=== PATIENT | female | born 1950 | race Caucasian/White ===

== ENCOUNTER 2025-05-06 12:38 | Emergency (ER) | payer OTHER, SELFPAY ==
[2025-05-06 12:39] VITALS: BMI 23.6
[2025-05-06 12:40] VITALS: BP 149/93
[2025-05-06 13:10] VITALS: BP 149/94
--- NOTE | 2025-05-06 13:36 | ED.GENMED ---
History of Present Illness
<Nela Antunez PA-C - Last Filed: 05/07/25 06:09>
General
Chief Complaint: Breathing Problem
Source: patient
Exam Limitations: none
Time Seen by Provider: 05/06/25 13:14
Nursing documentation reviewed up to this point in time: agreed with
<ANURAG Rodríguez - Last Filed: 05/06/25 23:10>
History of Present Illness
History of Present Illness:
see note
Past History
<Nela Antunez PA-C - Last Filed: 05/07/25 06:09>
Past History
ED Past Medical History: Cancer (Metastatic breast cancer)
ED Past Surgical History: Other (Left breast biopsy, left skin sparing free flap mastectomy and sentinel node biopsy, biopsy left iliac lesion)
Phy Exam
<ANURAG Rodríguez - Last Filed: 05/06/25 23:10>
Physical Exam
Physical Exam:
see note
Scores
<ANURAG Rodríguez - Last Filed: 05/06/25 23:10>
Heart Failure Risk
Heart Failure Risk Score: Not Applicable
Course
<THOR Hyde Last Filed: 05/07/25 06:09>
Orders/Labs/Results
Orders:
Orders
05/06/25 12:44
Electrocardiogram (*1) Urgent
Reason for Study: Shortness of Breath
EKG- Treatment ONCE
05/06/25 13:26
Complete Blood Count/With Diff Urgent
Comprehensive Metabolic Panel Urgent
Pro-BNP [NT-proBNP] Urgent
Troponin I Urgent
05/06/25 13:35
Type+Screen Urgent
COVID-19 Antigen Urgent
Source: Nasal Swab
Influenza A+B Rapid Molecular Urgent
JOANN Source: Nasal Swab
Specimen Description:
05/06/25 13:42
CT Chest PE Study Urgent
Comment:
Reason For Exam: hypoxia, cancer
Diphenhydramine [Benadryl] 50 mg IV NOW STA
Hydrocortisone Sod Succinate [Solu-Cortef] 200 mg IV NOW STA
Abnormal Lab Results
05/06/25
13:26
WBC 3.1 L 10^3/uL
(4.8-10.8)
RBC 3.92 L 10^6/uL
(4.20-5.40)
Hgb 11.4 L g/dL
(12.0-16.0)
Hct 34.9 L %
(37.0-47.0)
MCHC 32.7 L g/dL
(33.0-37.0)
RDW 15.8 H %
(11.5-14.5)
Absolute Lymphs (auto) 0.4 L 10^3/uL
(1.2-3.4)
Immature Gran % 1.0 H %
(0-0.5)
Lymphocytes % 12.9 L %
(20.5-51.1)
Monocytes % 12.6 H %
(1.7-9.3)
Basophils % 2.3 H %
(0-2)
BUN 20 H mg/dl
(7-17)
05/06/25 13:26
05/06/25 13:26
Vital Signs
Initial and Last Documented VS:
Initial Vital Signs
Temp Pulse Resp BP Pulse Ox
36.7 C 100 22 149/93 97
05/06/25 12:40 05/06/25 12:40 05/06/25 12:40 05/06/25 12:40 05/06/25 12:40
Last Documented Vital Signs
Temp Pulse Resp BP Pulse Ox
36.7 C 97 32 136/97 98
05/06/25 12:40 05/06/25 17:45 05/06/25 17:45 05/06/25 14:00 05/06/25 17:30
<ANURAG Rodríguez - Last Filed: 05/06/25 23:10>
Orders/Labs/Results
Orders:
Orders
05/06/25 12:44
Electrocardiogram (*1) Urgent
Reason for Study: Shortness of Breath
EKG- Treatment ONCE
05/06/25 13:26
Complete Blood Count/With Diff Urgent
Comprehensive Metabolic Panel Urgent
Pro-BNP [NT-proBNP] Urgent
Troponin I Urgent
05/06/25 13:35
Type+Screen Urgent
COVID-19 Antigen Urgent
Source: Nasal Swab
Influenza A+B Rapid Molecular Urgent
JOANN Source: Nasal Swab
Specimen Description:
05/06/25 13:42
CT Chest PE Study Urgent
Comment:
Reason For Exam: hypoxia, cancer
Diphenhydramine [Benadryl] 50 mg IV NOW STA
Hydrocortisone Sod Succinate [Solu-Cortef] 200 mg IV NOW STA
Abnormal Lab Results
05/06/25
13:26
WBC 3.1 L 10^3/uL
(4.8-10.8)
RBC 3.92 L 10^6/uL
(4.20-5.40)
Hgb 11.4 L g/dL
(12.0-16.0)
Hct 34.9 L %
(37.0-47.0)
MCHC 32.7 L g/dL
(33.0-37.0)
RDW 15.8 H %
(11.5-14.5)
Absolute Lymphs (auto) 0.4 L 10^3/uL
(1.2-3.4)
Immature Gran % 1.0 H %
(0-0.5)
Lymphocytes % 12.9 L %
(20.5-51.1)
Monocytes % 12.6 H %
(1.7-9.3)
Basophils % 2.3 H %
(0-2)
BUN 20 H mg/dl
(7-17)
05/06/25 13:26
05/06/25 13:26
Vital Signs
Initial and Last Documented VS:
Initial Vital Signs
Temp Pulse Resp BP Pulse Ox
36.7 C 100 22 149/93 97
05/06/25 12:40 05/06/25 12:40 05/06/25 12:40 05/06/25 12:40 05/06/25 12:40
Last Documented Vital Signs
Temp Pulse Resp BP Pulse Ox
36.7 C 97 32 136/97 98
05/06/25 12:40 05/06/25 17:45 05/06/25 17:45 05/06/25 14:00 05/06/25 17:30
<Nela Antunez PA-C - Last Filed: 05/07/25 06:09>
MDM/Problems Addressed
Differential Diagnosis Includes:
see MDM
MDM/Problems Addressed:
Note:
CHIEF COMPLAINT(S)
Shortness of breath
HISTORY OF PRESENT ILLNESS
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 The
symptoms began yesterday and have worsened since then. The patient reports using oxygen therapy for her breathing difficulties, a recent addition to her treatment regimen. Which started about a month ago. she uses two liters of supplemental oxygen,
which she uses consistently throughout the day and night. Patient has exertional dyspnea and feels fatigue and has very low energy. Today she went to her oncology appointment where she was supposed to have the iron infusion however because of her
symptoms her oncologist referred her to the emergency department instead. The patient denies chest pain and has not noted any fevers. Eating and drinking are adequate.
PAST MEDICAL AND SURGICAL HISTORY
The patient has a documented history of metastatic breast cancer. She is currently undergoing chemotherapy as part of her treatment plan.
SOCIAL DETERMINANTS AFFECTING HEALTH
The patient notes that she has had issues making it to appointments, possibly due to lack of transportation or logistical challenges associated with her health conditions.
REVIEW OF SYSTEMS
- Respiratory: Shortness of breath, worsening upon exertion, and history of fluid in lungs.
- Cardiovascular: No chest pain, occasional exertional shortness of breath.
- Constitutional: No fever reported.
PHYSICAL EXAM
GENERAL: Alert , in no apparent distress
EYE: pupils equal and reactive,
NECK: Supple
ENT: o/p clr, mmm.
CARDIAC: Regular rate and rhythm . No edema
LUNGS: Very faint end expiratory wheezing throughout, moving decent air, no rales
ABDOMEN: Soft, without focal tenderness, no r/g, no cvat, normal bowel sounds
NEUROLOGICAL: Alert and oriented, no focal neuro deficits
SKIN: Warm and dry, skin intact. Pale
MUSCULOSKELETAL: No edema, well perfused. neg megan's sign
PSYCH: Normal and appropriate interaction.
- Nursing notes reviewed and vital signs reviewed.
PLAN
1. Conduct a chest X-ray to assess for fluid accumulation in the lungs.
2. Continue monitoring oxygen saturation levels and adjust oxygen therapy as needed.
3. Follow up with oncologist as per regular chemotherapy schedule and any additional treatment needs.
DIFFERENTIAL DIAGNOSIS
The Differential Diagnosis includes, in no particular order and is not limited to:
1. Pulmonary edema
2. Acute exacerbation of chronic heart failure
3. Pulmonary embolism
4. Chronic obstructive pulmonary disease exacerbation
5. Pleural effusion
6. Pneumonia
7. Anemia
8. Metastatic disease progression in the lungs
9. Hypoxemia secondary to chemotherapy
10. Cardiomyopathy
<Nela Antunez PA-C - Last Filed: 05/07/25 06:09>
*Pulse Oximetry
SaO2: 97
Nasal Cannula flow liters per minute: 2
<ANURAG Rodríguez - Last Filed: 05/06/25 23:10>
*Radiology
Radiology exam reviewed: radiology read reviewed
*Pulse Oximetry
Patient hypoxic: no
*Critical Care Note
Total Time (30-74mins, 75-104mins- exclusive of procedures): Not Applicable
<ANURAG Rodríguez - Last Filed: 05/06/25 23:10>
Update Note
Update Note:
Received signout with CAT scan pending. CAT scan result shows severe radiation pneumonitis infectious pneumonia is an alternative diagnostic possibility however patient without cough afebrile. Additional findings on CAT scan with chronic
metastatic disease. Patient has oxygen as needed at home and feels well up to go home. She ambulated back and forth to the bathroom and feels much better. She would like to go home. I discussed with patient close outpatient follow with her
oncologist and family doctor. She is to return if any worsening of symptoms
ED Attending Note
<Nela Antunez PA-C - Last Filed: 05/07/25 06:09>
-
Portions of this chart may have been created with voice recognition software.� Occasional wrong word or��sound alike� substitutions may have occurred due to the inherent limitations of voice recognition software.
Discharge Plan
Departure
Patient Disposition: Home (Routine Discharge)
Date of Disposition: 05/06/25
Time of Disposition: 17:45
Patient with high blood pressure during this ER visit?: Yes
Condition: Fair
Covid-19: Not Applicable
Discharge Problem:
shortness of breath, Pneumonitis
Instructions: Shortness of Breath (Dyspnea) (DC), Pneumonitis
Prescriptions:
No Action
trazodone 50 MG tablet
50 mg PO HSPRN PRN (Reason: INSOMNIA)
fexofenadine [Violeta] 180 MG tablet
180 mg PO DAILYPRN PRN (Reason: ALLERGY SYMPTOMS)
tramadol 50 MG tablet
50 mg PO DAILYPRN PRN (Reason: PAIN)
docusate sodium 100 MG capsule
100 mg PO BIDPRN PRN (Reason: CONSTIPATION)
hydrocortisone 1 APPLIC cream
1 applic topical BIDPRN PRN (Reason: ARM/LEG RASH)
calcium carbonate-vitamin D3 [Oyster Shell Calcium-Vit D3] 500 MG tablet
1 tab PO TID
lansoprazole [Prevacid] 15 MG capsule,delayed release(DR/EC)
15 mg PO DAILYPRN PRN (Reason: ACID REFLUX)
paclitaxel 6 MG/ML concentrate
1 dose IV WEEKLY
denosumab [Xgeva] 120 MG/1.7 ML solution
120 mg SQ MONTHLY
azithromycin 250 MG tablet
500 mg PO DAILY Qty: 2 0RF
prednisone 10 MG tablet
10 mg PO .TAPER Qty: 84 0RF
Rx Instructions:
Take 50mg daily x7days, 40mg daily x7days,
30mg daily x7days
apixaban [Eliquis DVT-PE Treat 30D Start] 5 MG tablets,dose pack
5 - 10 mg PO DIRECTED Qty: 1 0RF
Rx Instructions:
DVT start pack (start from day 1)
Referrals:
Ciera Kirkpatrick MD [Family Provider, Family Practice]
Activity Restrictions/Additional Instructions:
Continue to wear your oxygen as previously recommended. Please follow-up with your oncologist closely in the next several days and return if any worsening of symptoms.
Interventions
Interventions:
*Risk Screen - Suicide Last Done: 05/06/25 12:40
*General Assessment Last Done: 05/06/25 12:40
*Neglect/Abuse Screening Last Done: 05/06/25 13:30
*ED- Fall Risk Assessment Last Done: 05/06/25 13:30
*Nursing Disposition Last Done: 05/06/25 17:50
ED- Cardiac Assessment Last Done: 05/06/25 13:30
ED- Pulmonary Assessment Last Done: 05/06/25 13:30
Discharge Date and Time
Discharge Date/Time: 05/06/25 18:20
Print Language: NEPALI
[2025-05-06] MEDS: SOLU-CORTEF 200 MG IV (13:58)
[2025-05-06] MEDS: BENADRYL 50 MG IV (13:58)
[2025-05-06 14:00] VITALS: BP 136/97
[2025-05-06 14:00] LABS: Hematocrit 34.9 % (37.0-47.0); Hemoglobin 11.4 g/dL (12.0-16.0); Mean Corp Hgb Conc. 32.7 g/dL (33.0-37.0); Mean Corpuscular Volume 89.0 fL (81.0-99.0); Nucleated Red Blood Cells % 0 %; Platelet Count 350 10^3/uL (130-400); Red Cell Dist. Width 15.8 % (11.5-14.5)
[2025-05-06 14:13] LABS: ALT (SGPT) 16 U/L (0-35); AST (SGOT) 22 U/L (14-36); Albumin 4.3 g/dl (3.5-5.0); Alkaline Phosphatase 92 U/L (38-126); Blood Urea Nitrogen 20 mg/dl (7-17); Calcium 9.1 mg/dl (8.4-10.2); Carbon Dioxide 30 mmol/L (22-30); Chloride 101 mmol/L (98-107); Estimated Creatinine Clearance 59 ml/min; Glucose 98 mg/dl (70-99); Potassium 4.0 mmol/L (3.5-5.1); Sodium 138 mmol/L (135-145); Total Protein 6.7 g/dl (6.3-8.2); eGFR > 60.00
[2025-05-06 14:22] LABS: COVID-19 Antigen Negative (Negative)
[2025-05-06 14:23] LABS: Troponin I < 0.012 ng/ml
== END 2025-05-06 18:20 | disposition home or self-care (01) ==
LOC: EMR 12:38
PROVIDERS: Emergency Medicine; Physician Assistant; EMERGENCY PHYSICIAN Emergency Medicine; FAMILY PHYSICIAN Family Medicine
DX: J70.0 Acute pulmonary manifestations due to radiation (principal); R03.0 Elevated blood-pressure reading, without diagnosis of hypertension; C78.2 Secondary malignant neoplasm of pleura; J91.0 Malignant pleural effusion; C78.7 Secondary malignant neoplasm of liver and intrahepatic bile duct; C77.1 Secondary and unspecified malignant neoplasm of intrathoracic lymph nodes; C77.5 Secondary and unspecified malignant neoplasm of intrapelvic lymph nodes; C79.51 Secondary malignant neoplasm of bone; Z99.81 Dependence on supplemental oxygen; Z85.3 Personal history of malignant neoplasm of breast; Z90.12 Acquired absence of left breast and nipple; Z85.72 Personal history of non-Hodgkin lymphomas
CPT/HCPCS: 99284; 96374; 96375; 71275; 80053; 83880; 84484; 85025; 86850; 86900; 86901; 87502; 87811; 93005; Q9967

== ENCOUNTER 2025-05-13 03:36 | Observation (INO) | payer OTHER, SELFPAY ==
[2025-05-12 21:10] VITALS: BP 113/75
[2025-05-12 21:30] VITALS: BP 135/76; BMI 24.1
[2025-05-12 22:00] VITALS: BP 126/79
[2025-05-12 22:59] LABS: ALT (SGPT) 28 U/L (0-35); AST (SGOT) 25 U/L (14-36); Albumin 4.0 g/dl (3.5-5.0); Alkaline Phosphatase 160 U/L (38-126); Blood Urea Nitrogen 29 mg/dl (7-17); Calcium 9.9 mg/dl (8.4-10.2); Carbon Dioxide 32 mmol/L (22-30); Chloride 93 mmol/L (98-107); Estimated Creatinine Clearance 51 ml/min; Glucose 116 mg/dl (70-99); Potassium 3.6 mmol/L (3.5-5.1); Sodium 133 mmol/L (135-145); Total Protein 6.7 g/dl (6.3-8.2); eGFR > 60.00
[2025-05-12 23:00] VITALS: BP 118/70
[2025-05-12 23:03] LABS: Hematocrit 35.0 % (37.0-47.0); Hemoglobin 11.5 g/dL (12.0-16.0); Mean Corp Hgb Conc. 32.9 g/dL (33.0-37.0); Mean Corpuscular Volume 87.3 fL (81.0-99.0); Nucleated Red Blood Cells % 0 %; Platelet Count 486 10^3/uL (130-400); Red Cell Dist. Width 16.3 % (11.5-14.5)
--- NOTE | 2025-05-12 23:36 | ED.GENMED ---
History of Present Illness
General
Chief Complaint: Swelling
Source: patient
Exam Limitations: none
Time Seen by Provider: 05/12/25 23:07
Nursing documentation reviewed up to this point in time: agreed with
History of Present Illness
History of Present Illness:
75-year-old female with past medical history of breast cancer mets to the lung, anemia, presents to the ER today with symptoms of an allergic reaction following the administration of a contrast agent during a computed tomography scan performed one
week ago. The patient reports she typically pre-medicates with prednisone and diphenhydramine for contrast-based imaging, and last week was given these pre medications.
Symptoms began soon after the imaging study, with the patient noticing increased itching, primarily of the feet and ankles, followed by significant blistering observed six days later after removing her socks. She reported these symptoms were
atypical compared to previous contrast reactions that primarily involved facial swelling and irritation.
Additionally, the patient has had increased shortness of breath, a symptom she attributes to the allergic reaction. The patient also has a history of skipped chemotherapy treatments due to respiratory issues, with a recent chest imaging suggesting
possible radiation pneumonitis versus pneumonia, though she denies symptoms consistent with pneumonia such as cough or fever. Her current symptoms include severe pain and sensitivity of the skin extending over her body, more localized to her lower
extremities now, and mild respiratory discomfort without increased oxygen requirements.
She is currently on chemotherapy.
Patient has not had a fever at home.
Past History
Past History
ED Past Medical History: Cancer (Metastatic breast cancer)
ED Past Surgical History: Other (Left breast biopsy, left skin sparing free flap mastectomy and sentinel node biopsy, biopsy left iliac lesion)
Review of Systems
Review of Systems
All Other Systems: ROS reviewed and negative except as documented in HPI and ROS
Phy Exam
Physical Exam
Physical Exam:
General: Patient is well appearing and in no acute distress; non-toxic
Skin: Warm and dry, see peripheral vascular exam
Head: Normocephalic, atraumatic
Eyes: Sclera non-icteric. EOMs intact.
Mouth: No intraoral lesions
Cardiac: Regular rate and rhythm, no murmur
Peripheral Vascular: Bilateral lower extremity edema with pedal erythema bilaterally, 2+ DP and PT pulses bilaterally, bullae noted to bilateral feet with negative Nikolsky sign
Pulm: Patient chronically maintained on 2 L of oxygen via nasal cannula lungs clear bilaterally to auscultation
Neuro: CN II-XII intact, no focal neurologic deficits.
Psychiatric: Appropriate mood and affect.
Scores
Heart Failure Risk
Heart Failure Risk Score: Not Applicable
Course
Orders/Labs/Results
Orders:
Orders
05/12/25 22:37
Complete Blood Count/With Diff Urgent
Comprehensive Metabolic Panel Urgent
NT-proBNP Urgent
05/12/25 23:29
CR Chest - 2 Views Urgent
Comment:
Reason For Exam: shortness of breath, lower ext swelling
05/13/25 00:11
Famotidine [Pepcid] 20 mg IV NOW STA
05/13/25 01:27
Diphenhydramine [Benadryl] 12.5 mg IV NOW STA
05/13/25 03:13
Admit/Transfer Patient As Directed
Co-Sign Provider:
Level of Care: Observation services
Assign to:: Medical/Surgical
Physician / Group: Gladys
Diagnosis: drug reaction with eosinophilia
PRN Pain Medication Management As Directed
May give lesser potent ordered pain med per pt: Yes
preference::
Protocol:: Medication orders for pain may be administered in a
manner that supports deferring to patient preference
when the pt is:
- Requesting an ordered lesser potent pain medication.
Least to most potent pain medications are defined
as: acetaminophen < NSAID < tramadol < opioids
(morphine, oxycodone, hydromorphone).
- Requesting a lesser dose of the same medication IF
ORDERED.
- Requesting a less intrusive route of administration
if both routes are prescribed by the provider (PO <
IV).
05/13/25 03:14
Code Status As Directed
Resuscitation Status: Do not resuscitate
Reached after discussion with pt or family/Healthcare POA: Yes
05/13/25 03:16
Prednisone [Deltasone] 30 mg PO NOW STA
05/13/25 03:56
Acetaminophen [Tylenol] 650 mg PO Q4HPRN PRN
Bisacodyl [Dulcolax] 10 mg RECTAL [id number] PRN
Diphenhydramine [Benadryl] 12.5 mg IV Q4HPRN PRN
Docusate W/Senna [Senokot-S] 1 tablet PO BIDPRN PRN
Ondansetron Injectable [Zofran] 4 mg IV Q6HPRN PRN
Polyethylene Glycol Powder [Miralax] 17 grams PO DAILYPRN PRN
05/13/25 03:56
Activity As Directed
Activity Level: With Assistance
Vital Signs As Directed
Frequency: Per unit guidelines
O2 Therapy [RESP] Routine
Nasal Cannula Liter Flow: 2 LPM
Titrate/Wean O2 to maintain O2 sat greater than (%): 92
Pulse Ox/spot Check [RESP] Routine
Quantity: 1
DX Deep Vein Thrombosis Video Routine
05/13/25 Breakfast
Regular
At Your Request: Full Participation
Basic Metabolic Panel IN AM
Complete Blood Count/No Diff IN AM
05/13/25 08:00
Aspirin Low Dose EC [Aspir Low (Enteric Coated)] 81 mg PO DAILY
Hydrochlorothiazide [Oretic] 12.5 mg PO DAILY
05/13/25 18:00
Enoxaparin Sodium [Lovenox] 40 mg SC QPM
05/13/25 22:00
Famotidine [Pepcid] 20 mg IV HS
Rosuvastatin Calcium [Crestor] 20 mg PO HS
05/14/25 08:00
Prednisone [Deltasone] 30 mg PO DAILY
Abnormal Lab Results
05/12/25
22:37
WBC 14.7 H 10^3/uL
(4.8-10.8)
RBC 4.01 L 10^6/uL
(4.20-5.40)
Hgb 11.5 L g/dL
(12.0-16.0)
Hct 35.0 L %
(37.0-47.0)
MCHC 32.9 L g/dL
(33.0-37.0)
RDW 16.3 H %
(11.5-14.5)
Plt Count 486 H D 10^3/uL
(130-400)
Abs Immat Gran (auto) 0.6 H 10^3/uL
(0-0.05)
Absolute Neuts (auto) 7.8 H 10^3/uL
(1.4-6.5)
Absolute Monos (auto) 1.8 H 10^3/uL
(0.1-0.6)
Absolute Eos (auto) 1.5 H 10^3/uL
(0-0.7)
Immature Gran % 4.3 H %
(0-0.5)
Lymphocytes % 19.7 L %
(20.5-51.1)
Monocytes % 12.4 H %
(1.7-9.3)
Eosinophils % 10.2 H %
(0-6)
Sodium 133 L mmol/L
(135-145)
Chloride 93 L mmol/L
(98-107)
Carbon Dioxide 32 H mmol/L
(22-30)
BUN 29 H mg/dl
(7-17)
Glucose 116 H mg/dl
(70-99)
Alkaline Phosphatase 160 H U/L
(38-126)
05/12/25 22:37
05/12/25 22:37
Vital Signs
Initial and Last Documented VS:
Initial Vital Signs
Temp Pulse Resp BP Pulse Ox
97.8 F 108 24 113/75 99
05/12/25 21:10 05/12/25 21:10 05/12/25 21:10 05/12/25 21:10 05/12/25 21:10
Last Documented Vital Signs
Temp Pulse Resp BP Pulse Ox
97.8 F 95 25 119/76 92
05/12/25 21:10 05/13/25 03:30 05/13/25 03:30 05/13/25 03:00 05/13/25 03:15
MDM/Problems Addressed
Differential Diagnosis Includes:
ddx include contact dermatitis, allergic reaction, cellulitis, bullous Pemphigoid
MDM/Problems Addressed:
75-year-old female with history of breast cancer with mets to the lung who presents to the ER today with concerns of rash and itching for the past few days. He required mission to the hospital for dermatology and infectious disease consult. She
reports that she is allergic to IV contrast dye which she had 6 days ago and did receive pretreatment at the time however she believes that later that day she started to develop allergic type symptoms. She reports that she feels itchiness all over
her body and this evening she started develop blisters and redness on her bilateral lower extremities. She denies any other allergen exposures. She has been on the same chemotherapy. She has not had a fever. This evening, she stated that some
the blister started to rupture on her own. On exam, she does not have evidence of Kolsky sign. Suspect symptoms related to severe allergic reaction however given her elevated white blood cell count, immunocompromise status, infectious etiology
also possible. Plan initially was to start Ancef however she is allergic to penicillins and with her redness and allergic symptoms would not want to initiate vancomycin. ED attending Dr. Jazlyn villa who evaluated patient at bedside.
Chronic conditions affecting care:
metastatic breast cancer
*Pulse Oximetry
SaO2: 92
Nasal Cannula flow liters per minute: 1
Oxygen Mode of Delivery: Room air
Patient hypoxic: no
*Critical Care Note
Total Time (30-74mins, 75-104mins- exclusive of procedures): Not Applicable
Data Reviewed
Review of Other/Old Records Reveals: Records (Reviewed ER physician documentation from 05/06/2025 patient seen for radiation pneumonitis)
ED Attending Note
-
Portions of this chart may have been created with voice recognition software.� Occasional wrong word or��sound alike� substitutions may have occurred due to the inherent limitations of voice recognition software.
Discharge Plan
Departure
Patient Disposition: Admit
Date of Disposition: 05/13/25
Time of Disposition: 02:16
Admit to: Med/Surg
Presentation/result/management discussed w/ accepting MD/DO: Hospitalist
Patient with high blood pressure during this ER visit?: No
Condition: Fair
Discharge Problem:
Blistering rash, Chronic shortness of breath
Interventions
Interventions:
*Risk Screen - Suicide Last Done: 05/12/25 21:10
*General Assessment Last Done: 05/12/25 21:10
*Neglect/Abuse Screening Last Done: 05/12/25 21:10
*ED COVID-19 Vaccine History Last Done: 05/12/25 21:10
*ED Influenza Vaccine History Last Done: 05/12/25 21:10
*Nursing Disposition Last Done: 05/13/25 03:52
ED- Cardiac Assessment Last Done: 05/12/25 21:30
ED- Pulmonary Assessment Last Done: 05/12/25 21:30
ED-Skin Assessment Last Done: 05/12/25 21:30
Discharge Date and Time
Discharge Date/Time: 05/13/25 03:53
[2025-05-13] VITALS (9 sets, daily range): BP systolic 117–141; BP diastolic 76–88; BMI 23.4; BMI 23.2
[2025-05-13] MEDS: PEPCID 20 MG IV (00:18)
[2025-05-13] MEDS: BENADRYL 12.5 MG IV (01:32)
--- NOTE | 2025-05-13 02:28 | HPS.HSE ---
Family Physician
-
Family Physician: Ciera Kirkpatrick
Chief Complaint
-
Rash and swelling
History of Present Illness
This is a 75-year-old female with past medical history significant for large cell lymphoma, metastatic breast cancer diagnosed 2018 with mets to the lung, bone complicated by malignant pleural effusion, lymphangitic pulmonary spread with pulmonary
nodules and radiation fibrosis/pneumonitis on 2 L home O2 as needed, status postmastectomy osteoporosis, urticaria.
Patient reported that she been usual state of health up until about 1 week ago when she went in for her fourth cycle of chemotherapy infusions since March. She had no problems with prior infusion. However prior to getting the infusion she told
the physician that she had been feeling weaker than usual and she did not get the medication that day. States she got some saline infusion and was told to go home and come back for another scheduled visit. Patient reported that she did feel short
of breath after getting the saline infusion and was therefore sent to the emergency department for further evaluation. At that time she got a CT with IV contrast which showed known radiation pneumonitis, no pleural metastatic disease,
reticulonodular interstitial disease throughout the lungs consistent with lymphangitic carcinomatosis, multifocal osteoblastic osseous metastatic disease and hepatic metastatic disease. There was no pulmonary embolism. She has a history of
contrast allergies and was prescribed with 1 dose of hydrocortisone and Benadryl prior to the CT scan.
Patient reported that since Sunday she developed itching throughout the body which is now localized mostly to her legs. She said after few days of the itching seem to be resolving and then she started taking Zyrtec as well. Although itching was
still going on she started developing blisters yesterday. She did come to the emergency department for evaluation. She denies any fevers or chills. She has no other medication or substance exposures.
In the emergency department patient was afebrile, blood pressure was 120/79 with a pulse of 100 and she was satting 97% on room air. ECG shows a normal sinus rhythm at a rate of [address] or T wave changes. X-ray shows interstitial
findings which is similar to prior. CBC with a white count of 14.7 hemoglobin 11.5 and plate count of 46. Electrolyte BUN/creatinine were normal. Glucose was normal. LFTs were normal. Alk phos was slightly elevated. She does have elevated
eosinophils compared to prior at 10.2 and absolute eosinophilia of 1500.
Medical History
Past Medical History
Past Medical History: Reports Cancer (Breast cancer with mets to lungs), CHF (History of CHF with preserved EF) and Other (History of PE)
Past Surgical History: Reports Other (Left Mastectomy)
Social History
Tobacco: Non-smoker
Alcohol: None
Drug: None
Family History
Family History: Not pertinent
Allergies / Home Medications
Allergies reflects when Allergies were last updated in [facility].
Home Medications with original date entered in [facility]
Allergy/Medication List:
Allergies
Allergy/AdvReac Type Severity Reaction Status Date / Time
amoxicillin Allergy Rash Verified 05/12/25 21:09
clavulanic acid Allergy Rash Verified 05/12/25 21:09
Iodinated Contrast Media Allergy Unknown Verified 05/12/25 21:09
penicillin V Allergy Rash Verified 05/12/25 21:09
Home Medications
aspirin 81 mg tablet,delayed release 81 mg PO DAILY 05/13/25
hydrochlorothiazide 12.5 mg tablet 12.5 mg PO DAILY 05/13/25
omeprazole 20 mg capsule,delayed release 20 mg PO DAILY 05/13/25
ondansetron HCl 8 mg tablet 8 mg PO Q8H PRN nausea 05/13/25
rosuvastatin 20 mg tablet 20 mg PO HS 05/13/25
Review of Systems
-
Constitutional: Reports No Symptoms
EENT: Reports No Symptoms
Respiratory: Reports No Symptoms
Cardiac: Reports No Symptoms
Abdomen/GI: Reports No Symptoms
: Reports No Symptoms
Musculoskeletal: Reports No Symptoms
Skin: Reports Itching and Rash
Neurological: Reports No Symptoms
Endocrine: Reports No Symptoms
Hematologic/Lymphatic: Reports No Symptoms
Psych: Reports No Symptoms
Physical Exam
Vital Signs
Vital Signs
Temp Pulse Resp BP Pulse Ox
97.8 F 100 28 128/79 93
05/12/25 21:10 05/13/25 02:00 05/13/25 02:00 05/13/25 02:00 05/13/25 02:00
Physical Exam
General: Well Developed, Well Nourished and No Apparent Distress
HEENT: NormoCephalic, Moist mucous membranes and Atraumatic
Respiratory: Clear
Cardiac: S1/S2 and Regular Rhythm; No Murmur or Rub
GI: Soft, Non Tender, Non Distended and Normal Bowel Sounds; No Organomegaly
Rectal: Deferred by Provider
Musculoskeletal: No Clubbing, No Cyanosis and No Edema
Skin: Rash (Bullae with clear fluid in the bilateral feet at the toes. There is no erythema. Spontaneous rupture noted without underlying nikolsky sign. No cellulitis. )
Neuro: AO x 3 and Nonfocal/grossly intact
Laboratory Results
-
05/12/25 22:37
05/12/25 22:37
Laboratory Results
Total Bilirubin 0.5 mg/dl (0.2-1.3) 05/12/25 22:37
AST 25 U/L (14-36) 05/12/25 22:37
ALT 28 U/L (0-35) 05/12/25 22:37
Alkaline Phosphatase 160 U/L (38-126) H 05/12/25 22:37
Data Reviewed
-
Diagnostic Radiology: Image Personally Visualized and interpreted
Medical Tests (Nuc Med, Echo, EKG etc): Image Personally Visualized and interpreted
Lab Data: Labs Reviewed by me
Impression/Plan
-
IMPRESSION:
75-year-old with metastatic breast cancer with mets to the lungs, liver, bone, currently on chemotherapy presents to the emergency department with itching and discomfort to the bilateral lower extremity and found to have vesicles/bullae right around
the toes. The bullae are clear and with spontaneous rupture revealing no Nikolsky sign and no surrounding erythema. Suspect this is allergic reaction with hypereosinophilia. Exposure is unclear. She did receive contrast although she got
pretreatment and is less likely to have resulted in a reaction. She denies any new medications or exposures. She has not been exposed to any new antibiotic. She did use aloe vera cream throughout her body after developing the itching 3 days after
contrast exposure. I suspect this acute allergic reaction likely secondary to contrast exposure. No evidence of cellulitis. Not consistent with Diego-Tyler's or toxic epidermal necrolysis. She is hemodynamically stable. She is on her
baseline oxygen. No wheezing or crackles.
PLAN:
Skin Rash w/ eosinophilia - Pruritius rash then developement of dependent bullaePossibly 2/2 contrast. No other exposure. No signs of acute infection. Did not receive chemo recently
- admit to med/surg observation
- hold off on abx for now
- benadryl prn pruritus
- prednisone 40mg po daily x 3 days and stop
- topical cream for rash ok if needed.
- monitor for fevers,
- ED request ID consult, will hold off on ID consult unless erythema worsening
- Dermatology consult in am.
Chronic Hypoxia - Mets to lungs with numerous changes, stable. Radiation pneumonitis stable. Now wheezing. On chronic home O2
- continue 2 L home O2 for now
Will continue her usual home HCTZ 12.5, Rosuvostatin, asa 81 and zofran as she has been on these medications for a long time without issues
DVT PPX - lovenox sq
Code status - Full Code
[2025-05-13] MEDS: DELTASONE 30 MG PO (03:28)
--- NOTE | 2025-05-13 05:36 | PTCARENOTE ---
Patient received from ED via stretcher. She was able to stand and pivot to the bed and BSC with assist x1. She was oriented to room and surroundings. Dyspnea at rest and with activity. O2 at 2lpm maintained. HRR, breath sounds are decreased
throughout. +LE pedal edema with + pedal pulses. Blisters TRISTA. L foot blisters intact and right open with scant serous drainage. Patient states she has relief of itching and no pain at this time. Call arcos in reach.
[2025-05-13 07:57] LABS: Hematocrit 33.8 % (37.0-47.0); Hemoglobin 11.5 g/dL (12.0-16.0); Mean Corp Hgb Conc. 34.0 g/dL (33.0-37.0); Mean Corpuscular Volume 86.9 fL (81.0-99.0); Platelet Count 456 10^3/uL (130-400); Red Cell Dist. Width 16.3 % (11.5-14.5)
[2025-05-13 08:39] LABS: Blood Urea Nitrogen 21 mg/dl (7-17); Calcium 9.3 mg/dl (8.4-10.2); Carbon Dioxide 30 mmol/L (22-30); Chloride 97 mmol/L (98-107); Estimated Creatinine Clearance 59 ml/min; Glucose 111 mg/dl (70-99); Potassium 3.9 mmol/L (3.5-5.1); Sodium 135 mmol/L (135-145); eGFR > 60.00
--- NOTE | 2025-05-13 09:07 | W.PN.HOSP.TC ---
Today's Communication/Plan
-
PT, wound care, continue prednisone, likely discharge tomorrow
Assessment / Plan
Assessment / Plan
HPI: 75-year-old with metastatic breast cancer with mets to the lungs, liver, bone, currently on chemotherapy presents to the emergency department with itching and discomfort to the bilateral lower extremity and found to have vesicles/bullae right
around the toes. The bullae are clear and with spontaneous rupture revealing no Nikolsky sign and no surrounding erythema. Suspect this is allergic reaction with hypereosinophilia. Exposure is unclear. She did receive contrast although she got
pretreatment and is less likely to have resulted in a reaction. She denies any new medications or exposures. She has not been exposed to any new antibiotic. She did use aloe vera cream throughout her body after developing the itching 3 days after
contrast exposure. I suspect this acute allergic reaction likely secondary to contrast exposure. No evidence of cellulitis. Not consistent with Diego-Tyler's or toxic epidermal necrolysis. She is hemodynamically stable. She is on her
baseline oxygen. No wheezing or crackles.
Assessment/plan:
Skin Rash w/ eosinophilia
- Pruritic rash then development of dependent bullae. Possibly 2/2 contrast. No other exposure. No signs of acute infection. Did not receive chemo recently
- Improving on prednisone 40mg po daily
- Continue prednisone 40 mg daily x 3-5 days total, then stop
- Consult PT, wound care
Metastatic breast cancer with metastases to the lungs
Radiation pneumonitis
Chronic Hypoxia
- Outpatient follow-up, continue oxygen
Hyperlipidemia
- Continue statin
GERD
- Continue PPI
Essential hypertension
- Continue HCTZ
DVT PPX - lovenox sq
Full Code
Physical Exam
General: No acute distress
HEENT: Normocephalic, Atraumatic, EOMI, MMM
Respiratory: Clear to Auscultation bilaterally
Cardiac: Normal S1/S2, Regular Rate and Rhythm
GI: Soft, Nontender, Nondistended, Normal Bowel Sounds
Extremities: No Clubbing, Cyanosis, or Edema
Neuro: Nonfocal/Grossly Intact
Psych: Calm, Cooperative
Derm: Erythema of bilateral forefoot with scattered serosanguineous bullae
Anticipated Discharge: Within 24 hours
Subjective/Interval History
-
Date of Service: May 13, 2025
Patient reports improvement in her bilateral feet pain and itching. She denies chest pain, denies shortness of breath. No fever, no vomiting.
Objective Data
-
Labs:
Laboratory Results
05/12/25 05/13/25
22:37 07:04
WBC 14.7 H 13.3 H
Hgb 11.5 L 11.5 L
Hct 35.0 L 33.8 L
Plt Count 486 H D 456 H
Sodium 133 L 135
Potassium 3.6 3.9
Chloride 93 L 97 L
Carbon Dioxide 32 H 30
BUN 29 H 21 H
Creatinine 0.7 0.6
Glucose 116 H 111 H
Calcium 9.9 9.3
Total Bilirubin 0.5
AST 25
ALT 28
Alkaline Phosphatase 160 H
Vital Signs:
Vital Signs
Temp Pulse Resp BP Pulse Ox
98.1 F 92 16 124/79 97
05/13/25 07:55 05/13/25 07:55 05/13/25 07:55 05/13/25 07:55 05/13/25 07:55
[2025-05-13] MEDS: ASPIR LOW (ENTERIC COATED) 81 MG PO (09:17)
[2025-05-13] MEDS: ORETIC 12.5 MG PO (09:17)
[2025-05-13] MEDS: MIRALAX 17 GRAMS PO (13:34)
[2025-05-13] MEDS: SENOKOT-S 1 TABLET PO (13:34)
--- NOTE | 2025-05-13 14:57 | WOUNDNOTE ---
[facility] RN NOTE: Reviewed chart, met with patient. Per chart review, patient has skin rash w/ eosinophilia with dependent bullae, possibly secondary to contrast. Right dorsal foot with newly opened blister, left foot blisters intact. Local wound care
provided to right foot . Patient given instruction on how to care for blisters if they open at home. Supplies given to patient and discharge orders updated. Sacrum intact, heels with stage 1 PI. Bilateral heels off-loaded with pillows under calves.
Adhesive foam applied to bilateral heels. Patient is on a [employer] Max Air. RN given update. Will sign off.
--- NOTE | 2025-05-13 16:45 | CM ---
[employer] reviewed patient's chart and met with patient and patient was admitted under OBS, WOOD letter provided to patient and patient lives with spouse in a split level home, 5 steps to enter patient is independent with adl's and ambulation,
patient has a cane, walker and home oxygen she thinks is from [employer].
PCP: Ciera Kirkpatrick
Pharmacy: [facility].
[2025-05-13] MEDS: LOVENOX 40 MG SC (18:37)
[2025-05-13] MEDS: CRESTOR 20 MG PO (21:00)
[2025-05-14 06:00] VITALS: BMI 22.9
[2025-05-14 07:00] VITALS: BP 125/85
--- NOTE | 2025-05-14 08:12 | W.PN.HOSP.TC ---
Today's Communication/Plan
-
Discharge to short-term rehab when bed available
Assessment / Plan
Assessment / Plan
HPI: 75-year-old with metastatic breast cancer with mets to the lungs, liver, bone, currently on chemotherapy presents to the emergency department with itching and discomfort to the bilateral lower extremity and found to have vesicles/bullae right
around the toes. The bullae are clear and with spontaneous rupture revealing no Nikolsky sign and no surrounding erythema. Suspect this is allergic reaction with hypereosinophilia. Exposure is unclear. She did receive contrast although she got
pretreatment and is less likely to have resulted in a reaction. She denies any new medications or exposures. She has not been exposed to any new antibiotic. She did use aloe vera cream throughout her body after developing the itching 3 days after
contrast exposure. I suspect this acute allergic reaction likely secondary to contrast exposure. No evidence of cellulitis. Not consistent with Diego-Tyler's or toxic epidermal necrolysis. She is hemodynamically stable. She is on her
baseline oxygen. No wheezing or crackles.
Assessment/plan:
Skin Rash w/ eosinophilia
- Pruritic rash then development of dependent bullae. Possibly 2/2 contrast. No other exposure. No signs of acute infection. Did not receive chemo recently
- Improving on prednisone 40mg po daily
- Continue prednisone 30 mg daily x 3-5 days total, then stop
- PT rec SNF, wound care
Metastatic breast cancer with metastases to the lungs
Radiation pneumonitis
Chronic Hypoxia
- Outpatient follow-up, continue oxygen
Hyperlipidemia
- Continue statin
GERD
- Continue PPI
Essential hypertension
- Continue HCTZ
DVT PPX - lovenox sq
Full Code
Total time spent to see the patient on the floor, examine the patient, review data and lab results, discuss treatment plan with patient, nursing staff around 37 minutes.
Physical Exam
General: No acute distress
HEENT: Normocephalic, Atraumatic, EOMI, MMM
Respiratory: Clear to Auscultation bilaterally
Cardiac: Normal S1/S2, Regular Rate and Rhythm
GI: Soft, Nontender, Nondistended, Normal Bowel Sounds
Extremities: No Clubbing, Cyanosis, or Edema
Neuro: Nonfocal/Grossly Intact
Psych: Calm, Cooperative
Derm: Erythema of bilateral forefoot with scattered serosanguineous bullae
Anticipated Discharge: Within 24 hours
Subjective/Interval History
-
Date of Service: May 14, 2025
Patient reports her bilateral feet itching is improved, currently 3. Her pain is also improved, currently 1. She denies chest pain, she has chronic shortness of breath and chronic hypoxia. No fever, no vomiting. She had a bowel movement.
Objective Data
-
Vital Signs:
Vital Signs
Temp Pulse Resp BP Pulse Ox
98.0 F 93 17 127/77 97
05/13/25 23:27 05/13/25 23:27 05/13/25 23:27 05/13/25 23:27 05/13/25 23:27
I&O
05/13/25 05/14/25 05/15/25
06:59 06:59 06:59
Intake Total 1140 / 1140
Output Total 900 / 900
Balance 240 / 240
[2025-05-14] MEDS: DELTASONE 30 MG PO (08:31)
[2025-05-14] MEDS: ASPIR LOW (ENTERIC COATED) 81 MG PO (08:32)
[2025-05-14] MEDS: ORETIC 12.5 MG PO (08:32)
[2025-05-14 09:57] VITALS: BP 136/74; O2SAT 98
--- NOTE | 2025-05-14 10:55 | CM ---
Addendum entered by Heather Deluna 05/14/25 16:17:
Authorization approved for Skilled level of care for 5 days; starting tomorrow, 05/15/2025
Auth # [id number]
Next review 05/19; call in clinicals to # [phone]
Ambulance Authorization # [id number]
Addendum entered by Heather Deluna 05/14/25 15:33:
[facility] unable to accept referral; no bed available
[facility] can accept patient patient tomorrow pending Authorization approval
[facility] NPI #[id number] and
Provider: Dr. Marilu Gonzales; NPI# [id number]
Plan: Discharge to [facility] tomorrow pending Auth approval
Addendum entered by Heather Deluna 05/14/25 11:14:
SNF referrals sent via [facility]
Original Note:
Met with patient at bedside
IMM benefit explained; form signed @ 1035
Explained to patient that PT recommended SNF when stable for discharge; Patient is agreeable; SNF agency options identified; preferences are [facility], [facility] and [facility]
Plan: Discharge to SNF pending bed availability and Authorization approval
[2025-05-14] MEDS: REFRESH EYE DROPS (PF) 1 DROPS BOTH EYES (13:16)
[2025-05-14 14:26] VITALS: BP 130/83; PULSE 103; O2SAT 91
[2025-05-14 15:00] VITALS: BP 131/88
[2025-05-14] MEDS: LOVENOX 40 MG SC (18:00)
[2025-05-14] MEDS: CRESTOR 20 MG PO (21:44)
[2025-05-14 23:27] VITALS: BP 151/85
[2025-05-15 07:34] VITALS: BP 143/88
[2025-05-15] MEDS: REFRESH EYE DROPS (PF) 1 DROPS BOTH EYES (08:36)
[2025-05-15] MEDS: ASPIR LOW (ENTERIC COATED) 81 MG PO (08:37)
[2025-05-15] MEDS: ORETIC 12.5 MG PO (08:37)
[2025-05-15] MEDS: DELTASONE 30 MG PO (08:37)
--- NOTE | 2025-05-15 08:37 | W.PN.HOSP.TC ---
Today's Communication/Plan
-
Discharge to short-term rehab today
Assessment / Plan
Assessment / Plan
HPI: 75-year-old with metastatic breast cancer with mets to the lungs, liver, bone, currently on chemotherapy presents to the emergency department with itching and discomfort to the bilateral lower extremity and found to have vesicles/bullae right
around the toes. The bullae are clear and with spontaneous rupture revealing no Nikolsky sign and no surrounding erythema. Suspect this is allergic reaction with hypereosinophilia. Exposure is unclear. She did receive contrast although she got
pretreatment and is less likely to have resulted in a reaction. She denies any new medications or exposures. She has not been exposed to any new antibiotic. She did use aloe vera cream throughout her body after developing the itching 3 days after
contrast exposure. I suspect this acute allergic reaction likely secondary to contrast exposure. No evidence of cellulitis. Not consistent with Diego-Tyler's or toxic epidermal necrolysis. She is hemodynamically stable. She is on her
baseline oxygen. No wheezing or crackles.
Assessment/plan:
Skin Rash w/ eosinophilia
- Pruritic rash then development of dependent bullae. Possibly 2/2 contrast. No other exposure. No signs of acute infection. Did not receive chemo recently
- Improving on prednisone 30mg po daily
- Will discharge on prednisone 30 mg p.o. daily for 1 more day
- PT rec SNF, wound care
Metastatic breast cancer with metastases to the lungs
Radiation pneumonitis
Chronic Hypoxia
- Outpatient follow-up, continue oxygen
Hyperlipidemia
- Continue statin
GERD
- Continue PPI
Essential hypertension
- Continue HCTZ
DVT PPX - lovenox sq
Full Code
Physical Exam
General: No acute distress
HEENT: Normocephalic, Atraumatic, EOMI, MMM
Respiratory: Clear to Auscultation bilaterally
Cardiac: Normal S1/S2, Regular Rate and Rhythm
GI: Soft, Nontender, Nondistended, Normal Bowel Sounds
Extremities: No Clubbing, Cyanosis, or Edema
Neuro: Nonfocal/Grossly Intact
Psych: Calm, Cooperative
Derm: Erythema of bilateral forefoot with scattered serosanguineous bullae
Anticipated Discharge: Today
Subjective/Interval History
-
Date of Service: May 15, 2025
Patient reports that the itching on her feet is improved, currently 1 out of 10 in intensity. The pain in her feet has resolved. She denies chest pain, she does have chronic shortness of breath. No fever, no vomiting.
Objective Data
-
Vital Signs:
Vital Signs
Temp Pulse Resp BP Pulse Ox
98.6 F 93 16 143/88 94
05/15/25 07:34 05/15/25 07:34 05/15/25 07:34 05/15/25 07:34 05/15/25 07:34
I&O
05/14/25 05/15/25 05/16/25
06:59 06:59 06:59
Intake Total 1140 / 1140 840 / 840
Output Total 900 / 900
Balance 240 / 240 840 / 840
--- NOTE | 2025-05-15 10:19 | CM ---
Chart reviewed. Auth approved for [facility] for today
Confirmed w/ Shiela/[facility] director, bed available for patient
Spoke w/ son, Paul, via phone. Confirmed auth approval and d/c to SNF today. Offered w/c van transport as patient doesn't qualify for an ambulance. Paul agreeable to cost of transport, Acute Care transport number provided. Paul confirmed
patient has a portable O2 device and can bring to the hospital during his lunch.
Transport form left on chart
Patient remains obs status, IMM delivered yesterday in error
[facility]
Report: [phone]

Plan: D/c to [facility] today. W/c van transport
--- NOTE | 2025-05-15 11:18 | W.DCSUMMARY ---
Discharge Summary
Discharge Data
Date of Admission: 05/13/25
Date of Discharge: 05/15/25
-
Pending Results: No
Hospital Course
Discharge diagnosis:
Acute dermatitis with fluid-filled bullae, from probable allergic reaction to contrast
Metastatic breast cancer with metastases to the lung
Radiation pneumonitis
Chronic hypoxia
Gastroesophageal reflux disease
Essential hypertension
Hyperlipidemia
Hospital course:
75-year-old female with a past medical history of metastatic breast cancer with metastases to the lung, radiation pneumonitis, and chronic hypoxia who presents with bilateral feet pain, itching, and erythema. She did receive contrast recently.
Suspect this is an allergic reaction from contrast. She was treated with prednisone 30 mg daily. Her pain resolved, and her itching improved dramatically. She is medically stable for discharge to short-term rehab. She can continue prednisone 30
mg for 1 more day upon discharge. She needs to follow-up with her PCP 1 week after she leaves rehab.
Disposition: Short-term rehab
Discharge planning: Required 33 minutes
Discharge Plan
-
Patient Disposition: [facility]iary[facility]SNF
Discharge Diagnosis/Procedures: Skin rash/dermatitis, suspect secondary to iodine exposure
Condition: Fair
Diet: Low Fat and Low Cholesterol
Activity: As tolerated
Driving Restrictions: As prior to admission
Activity Restrictions/Additional Instructions:
Take prednisone 30 mg daily for 1 more day.
Follow-up with your primary care provider 1 week after you leave rehab.
Wound Care Instructions Blisters- If blisters open, keep clean by washing gently with soap and water and applying clean, not adherent dressing provided.
Follow up at wound care center call for an appointment.
Referrals:
Ciera Kirkpatrick MD [Family Provider, [facility]]
Prescriptions:
New
polyethylene glycol 3350 17 gram Powder In Packet
17 g PO DAILYPRN PRN (Reason: constipation) Qty: 0 0RF
Refresh Classic (PF) 1.4-0.6 % Dropperette
1 drp BOTH EYES QIDPRN PRN (Reason: dry eyes) Qty: 0 0RF
sennosides-docusate sodium [Senna Plus] 8.6-50 mg Tablet
1 tab PO BIDPRN PRN (Reason: constipation) Qty: 0 0RF
prednisone 10 mg tablet
30 mg PO DAILY 1 Days Qty: 3 0RF
Saline Mist 0.65 % aerosol,spray
2 spray intranasal QID PRN (Reason: dry nasal passages) Qty: 44 0RF
Continued
ondansetron HCl 8 mg tablet
8 mg PO Q8H PRN (Reason: nausea)
aspirin 81 mg Tablet,Delayed Release (Dr/Ec)
81 mg PO DAILY
omeprazole 20 mg capsule,delayed release(DR/EC)
20 mg PO DAILY
rosuvastatin 20 mg tablet
20 mg PO HS
hydrochlorothiazide 12.5 mg tablet
12.5 mg PO DAILY
Discharge Orders:
Discharge Patient (As Directed); Ordered 05/15/25
Ordered By: Elvis Langford
Discharge Date and Time
Discharge Date/Time: 05/15/25 16:51
Print Language: URDU
[2025-05-15 15:25] VITALS: BP 129/90
== END 2025-05-15 16:51 ==
LOC: 2 NORTH 03:36
PROVIDERS: Emergency Medicine; ADMITTING PHYSICIAN Internal Medicine; ATTENDING PHYSICIAN Family Medicine; EMERGENCY PHYSICIAN Student in an Organized Health Care Education/Training Program; FAMILY PHYSICIAN Family Medicine
DX: L27.0 Generalized skin eruption due to drugs and medicaments taken internally (principal); T50.905A Adverse effect of unspecified drugs, medicaments and biological substances, initial encounter; D72.10 Eosinophilia, unspecified; R09.02 Hypoxemia; C78.01 Secondary malignant neoplasm of right lung; C78.02 Secondary malignant neoplasm of left lung; E78.5 Hyperlipidemia, unspecified; K21.9 Gastro-esophageal reflux disease without esophagitis; I11.0 Hypertensive heart disease with heart failure; I50.32 Chronic diastolic (congestive) heart failure; J70.0 Acute pulmonary manifestations due to radiation; Z79.52 Long term (current) use of systemic steroids; Z79.82 Long term (current) use of aspirin; Z79.899 Other long term (current) drug therapy; Z99.81 Dependence on supplemental oxygen
CPT/HCPCS: 71046; 80048; 80053; 83880; 85025; 85027; 87070; 93005; 96374; 96375; 97162; 97167; 97530; 99285; G0378

== ENCOUNTER → 2025-05-18 10:30 | Outpatient (REF) | payer OTHER, SELFPAY ==
[2025-05-18 11:57] LABS: Hematocrit 36.2 % (37.0-47.0); Hemoglobin 11.5 g/dL (12.0-16.0); Mean Corp Hgb Conc. 31.8 g/dL (33.0-37.0); Mean Corpuscular Volume 92.8 fL (81.0-99.0); Platelet Count 435 10^3/uL (130-400); Red Cell Dist. Width 17.8 % (11.5-14.5)
[2025-05-18 12:19] LABS: Blood Urea Nitrogen 25 mg/dl (7-17); Calcium 8.8 mg/dl (8.4-10.2); Carbon Dioxide 29 mmol/L (22-30); Chloride 98 mmol/L (98-107); Glucose 81 mg/dl (70-99); Potassium 4.0 mmol/L (3.5-5.1); Sodium 133 mmol/L (135-145); eGFR > 60.00
[2025-05-18 14:02] LABS: Nucleated Red Blood Cells % 0.2 %
== END ==
LOC: OLABP 10:30
PROVIDERS: ATTENDING PHYSICIAN Family Medicine
DX: J70.0 Acute pulmonary manifestations due to radiation (principal); C50.919 Malignant neoplasm of unspecified site of unspecified female breast; R21 Rash and other nonspecific skin eruption; I10 Essential (primary) hypertension; K21.9 Gastro-esophageal reflux disease without esophagitis; E78.5 Hyperlipidemia, unspecified; D72.10 Eosinophilia, unspecified; J96.11 Chronic respiratory failure with hypoxia
CPT/HCPCS: 36415; 80048; 85025

== ENCOUNTER → 2025-05-19 10:58 | Outpatient (REF) | payer OTHER, SELFPAY ==
[2025-05-19 12:45] LABS: Mean Corp Hgb Conc. 32.8 g/dL (33.0-37.0); Mean Corpuscular Volume 89.5 fL (81.0-99.0); Platelet Count 431 10^3/uL (130-400); Red Cell Dist. Width 17.7 % (11.5-14.5)
[2025-05-19 12:46] LABS: Hematocrit 34.8 % (37.0-47.0); Hemoglobin 11.4 g/dL (12.0-16.0)
[2025-05-19 12:47] LABS: Absolute Neutrophils -Man Diff 10.2 10^3/uL (1.4-6.5); Normal RBC Morphology Yes; Platelets Checked Yes; Total Cells Counted 100
[2025-05-19 13:19] LABS: Blood Urea Nitrogen 24 mg/dl (7-17); Calcium 8.6 mg/dl (8.4-10.2); Carbon Dioxide 30 mmol/L (22-30); Chloride 97 mmol/L (98-107); Glucose 85 mg/dl (70-99); Potassium 4.0 mmol/L (3.5-5.1); Sodium 132 mmol/L (135-145); eGFR > 60.00
== END ==
LOC: OLABPG 10:58
PROVIDERS: ATTENDING PHYSICIAN Family Medicine
DX: J70.0 Acute pulmonary manifestations due to radiation (principal); C50.919 Malignant neoplasm of unspecified site of unspecified female breast; R21 Rash and other nonspecific skin eruption; I10 Essential (primary) hypertension; K21.9 Gastro-esophageal reflux disease without esophagitis; E78.5 Hyperlipidemia, unspecified; D72.10 Eosinophilia, unspecified; J96.11 Chronic respiratory failure with hypoxia
CPT/HCPCS: 36415; 80048; 85025

== ENCOUNTER → 2025-05-22 11:23 | Outpatient (REF) | payer OTHER, SELFPAY ==
[2025-05-22 12:13] LABS: Hematocrit 33.1 % (37.0-47.0); Hemoglobin 10.7 g/dL (12.0-16.0); Mean Corp Hgb Conc. 32.3 g/dL (33.0-37.0); Mean Corpuscular Volume 89.2 fL (81.0-99.0); Platelet Count 351 10^3/uL (130-400); Red Cell Dist. Width 17.3 % (11.5-14.5)
[2025-05-22 12:17] LABS: Blood Urea Nitrogen 24 mg/dl (7-17); Calcium 8.8 mg/dl (8.4-10.2); Carbon Dioxide 32 mmol/L (22-30); Chloride 97 mmol/L (98-107); Glucose 89 mg/dl (70-99); Potassium 3.8 mmol/L (3.5-5.1); Sodium 133 mmol/L (135-145); eGFR > 60.00
[2025-05-22 12:24] LABS: Nucleated Red Blood Cells % 0 %
== END ==
LOC: OLABP 11:23
PROVIDERS: ATTENDING PHYSICIAN Family Medicine
DX: J70.0 Acute pulmonary manifestations due to radiation (principal); C50.919 Malignant neoplasm of unspecified site of unspecified female breast; R21 Rash and other nonspecific skin eruption; I10 Essential (primary) hypertension; K21.9 Gastro-esophageal reflux disease without esophagitis; E78.5 Hyperlipidemia, unspecified; D72.10 Eosinophilia, unspecified; J96.11 Chronic respiratory failure with hypoxia
CPT/HCPCS: 36415; 80048; 85025

== ENCOUNTER → 2025-05-26 11:47 | Outpatient (REF) | payer OTHER, SELFPAY ==
[2025-05-26 12:44] LABS: Hematocrit 32.4 % (37.0-47.0); Hemoglobin 10.6 g/dL (12.0-16.0); Mean Corp Hgb Conc. 32.7 g/dL (33.0-37.0); Mean Corpuscular Volume 90.5 fL (81.0-99.0); Platelet Count 367 10^3/uL (130-400); Red Cell Dist. Width 16.3 % (11.5-14.5)
[2025-05-26 13:08] LABS: Blood Urea Nitrogen 28 mg/dl (7-17); Calcium 9.0 mg/dl (8.4-10.2); Chloride 96 mmol/L (98-107); Glucose 94 mg/dl (70-99); Potassium 4.9 mmol/L (3.5-5.1); Sodium 134 mmol/L (135-145); eGFR > 60.00
[2025-05-26 13:17] LABS: Carbon Dioxide 33 mmol/L (22-30)
== END ==
LOC: OLABP 11:47
PROVIDERS: ATTENDING PHYSICIAN Family Medicine
DX: J70.0 Acute pulmonary manifestations due to radiation (principal); C50.919 Malignant neoplasm of unspecified site of unspecified female breast; R21 Rash and other nonspecific skin eruption; I10 Essential (primary) hypertension; D72.10 Eosinophilia, unspecified; J96.11 Chronic respiratory failure with hypoxia
CPT/HCPCS: 36415; 80048; 85027